=== PATIENT | female | born 2000 | race Two or more races ===

== ENCOUNTER → 2021-03-03 07:44 | Outpatient (CLI) | payer MEDICAID, SELFPAY ==
[2021-03-03 08:12] LABS: Absolute Lymphocyte Count 1.24 X10^3/uL (0.83-4.51); Absolute Neutrophil Count 2.5 X10^3/uL (2.0-7.7); Basophil# 0.03 X10^3/uL; Basophil% 0.6 % (0-1); Eosinophil# 0.41 X10^3/uL; Eosinophils% 8.7 % (0-5); Hematocrit 42.7 % (37-47); Hemoglobin 14.4 g/dL (12.0-15.0); Lymphocyte # 1.24 X10^3/ul (0.83-4.51); Lymphocyte % 26.4 % (19-41); Mean Corp Hgb Conc 33.7 g/dL (32-36); Mean Corpuscular Hgb 29.7 pg (27.0-32.0); Mean Platelet Vol. 8.8 fl (6.2-12.0); Monocyte# 0.47 X10^3/uL; NRBC Flagged by Analyzer 0 % (0-5); Neutrophil # 2.53 X10^3/uL (2.7-7.7); Neutrophil % 54.1 % (47-70); Platelet Count 284 K/mm3 (150-450); RBC Distribution Width CV 11.9 % (11.6-14.6); Red Blood Count 4.85 M/mm3 (4.2-5.4); White Blood Count 4.7 K/mm3 (4.4-11.0)
[2021-03-03 08:25] LABS: Amphetamine Urine VISTA NEGATIVE (<1000 ng/mL); Barbiturate Urine VISTA NEGATIVE (< 200 ng/mL); Benzodiazepine Urine VISTA NEGATIVE (< 200 ng/mL); Cocaine Urine VISTA NEGATIVE (< 300 ng/mL); Ecstacy Urine VISTA NEGATIVE (< 500 ng/mL); Methadone Urine VISTA NEGATIVE (< 300 ng/mL); PCP Urine VISTA NEGATIVE (< 25 ng/mL); THC Urine VISTA NEGATIVE (< 50 ng/mL); Vista UDS pH Range 6
[2021-03-03 08:59] LABS: ALB/GLOB Ratio 0.8 RATIO (0.9-2.4); AST(SGOT) 17 U/L (15-37); Alanine Aminotransfer ALT/SGPT 16 U/L (13-56); Albumin, Serum 3.5 g/dL (3.2-5.0); Alkaline Phosphatase 43 U/L (45-117); BUN 11 mg/dL (7-18); BUN/Creat Ratio 14.1 RATIO (10-20); Calcium,Total 8.6 mg/dL (8.5-10.1); Cholesterol 161 mg/dL (200); Creatinine, Serum 0.78 mg/dL (0.55-1.02); EST Glomerular Filtration Rate 100 mL/min (>60); Est Glom Filt Rate - Afr Amer 120 mL/min (>60); Globulin 4.6 g/dL (2.2-4.2); Glucose 80 mg/dL (74-106); Protein, Total 8.1 g/dL (6.4-8.2)
[2021-03-03 09:00] LABS: Anion Gap 4 (5-15); Chloride 106 mmol/L (98-107); Free T3 3.2 pg/mL (2.18-3.98); High Density Lipoprotein 73 mg/dL; Sodium Level 134 mmol/L (136-145); T4 Free Direct 0.87 ng/dL (0.76-1.46); T4 Total, Thyroxin 11.6 ug/dL (4.8-13.9); Thyroid Stim Hormone (TSH) 3.65 uIU/mL (0.358-3.74); Triglycerides 102 mg/dL; Very Low Density Lipoprotein 20 mg/dL (5-40)
[2021-03-03 09:29] LABS: T3 Total - Triiodothyronine 1.71 ng/mL (0.6-1.81)
== END ==
DX: F41.1 Generalized anxiety disorder (principal); F31.62 Bipolar disorder, current episode mixed, moderate
CPT/HCPCS: 36415; 80053; 80061; 80307; 84436; 84439; 84443; 84480; 84481; 85025

== ENCOUNTER → 2021-04-10 08:58 | Outpatient (CLI) | payer MEDICAID, SELFPAY ==
[2021-04-10 09:51] LABS: Amphetamine Urine VISTA NEGATIVE (<1000 ng/mL); Barbiturate Urine VISTA NEGATIVE (< 200 ng/mL); Benzodiazepine Urine VISTA NEGATIVE (< 200 ng/mL); Cocaine Urine VISTA NEGATIVE (< 300 ng/mL); Ecstacy Urine VISTA NEGATIVE (< 500 ng/mL); Methadone Urine VISTA NEGATIVE (< 300 ng/mL); PCP Urine VISTA NEGATIVE (< 25 ng/mL); THC Urine VISTA POSITIVE (< 50 ng/mL); Vista UDS pH Range 5
== END ==
DX: F90.2 Attention-deficit hyperactivity disorder, combined type (principal); F41.1 Generalized anxiety disorder
CPT/HCPCS: 80307

== ENCOUNTER → 2022-01-07 | Outpatient (CLI) | payer MEDICARE, MEDICAID, SELFPAY ==
--- NOTE | 2022-01-07 07:53 | CT_ITS ---
STUDY: CT MAXILLOFACIAL SINUSES REASON FOR EXAM: Female, 21 years old. CHRONIC SINUSITIS RADIATION DOSAGE (If Supplied By Facility): CTDIvol = ( 33.06 ) mGy, DLP = ( 891.70 ) mGycm TECHNIQUE: The patient was scanned in a multi detector CT scanner. High resolution axial imaging was performed without the administration of intravenous contrast material. Sagittal and coronal images were reconstructed. Individualized dose optimization techniques were used for this CT. COMPARISON: None. FINDINGS: FRONTAL SINUSES: Normal aeration, without mucosal inflammatory disease. ETHMOIDAL SINUSES: Mucosal thickening of the ethmoid sinuses. MAXILLARY SINUSES: Mild degree of mucosal thickening of both maxillary sinuses slightly worse on the left side. SPHENOIDAL SINUSES: Normal aeration, without mucosal inflammatory disease. There is patency of the bilateral maxillary infundibuli with normal uncinate processes, ethmoid bullae, and hiatus semilunaris. There is a wili bullosa of the right middle turbinate. There is hypertrophy of the right inferior nasal turbinate. Normal midline nasal septum. There is patency of the bilateral nasal airways. The visualized osseous structures are normal. The visualized bilateral orbital contents are normal. CT/Sinus/Facial Bone IMPRESSION: Mucosal thickening of the maxillary sinuses and ethmoid sinuses. Hypertrophy of the inferior turbinates on the right side. Electronically Signed: Gomez Calvin MD at 8:46 EDT ,
== END | disposition home or self-care (01) ==
LOC: CT 07:51
PROVIDERS: Referring Provider Otolaryngology; Visit Provider Otolaryngology
DX: J32.8 Other chronic sinusitis (principal)
CPT/HCPCS: 70486

== ENCOUNTER → 2022-08-31 | Outpatient (CLI) | payer MEDICARE, SELFPAY | END | disposition home or self-care (01) | PROVIDERS: Referring Provider Otolaryngology; Visit Provider Otolaryngology | DX: J32.8 Other chronic sinusitis (principal) | CPT/HCPCS: 87070; 87077; 87186; 87205 ==

== ENCOUNTER → 2022-10-06 | Outpatient (CLI) | payer MEDICARE, MEDICAID, SELFPAY ==
--- NOTE | 2022-10-06 12:22 | ETH_PTH ---
PATIENT: ANA LUISA SEGURA LOC: [facility] U#:[id number] AGE/SX: 22/F ROOM: RE10/06/[address]: Dr. Drew Morgan MD : 2000 BED: DIS: 10/06/2022 SPEC #: [id number] RECD: 10/06/22 14:57 STATUS: KENNEY VERONICA #: [id number] WOLFGANG: 10/06/22 12:[address]: Drew Morgan DEPT: SURGICAL PATHOLOGY RECD BY: Rhys Granger ENTERED: 10/07/22 08:15 SP TYPE: ETH TISS OTHR DR: No Primary Care Phys [facility] Tissues: A - Ethmoid sinus, NOS B - Ethmoid sinus, NOS Procedures: Decalcification bone/plaque Surgery Specimen Level IV HEADER OPERATION: Functional endoscopic sinus surgery PRE-OP DIAGNOSIS: Chronic sinusitis TISSUE SUBMITTED: A ? Right sinus contents, B ? Left sinus contents MICROSCOPIC DIAGNOSIS A. Right sinus contents: Fragments of respiratory mucosa with chronic inflammation and bone. B. Left sinus contents: Fragments of respiratory mucosa with chronic inflammation and bone. AJ:erwin 10/12/2022 MICROSCOPIC DESCRIPTION Slides are reviewed. GROSS DESCRIPTION A - Received in fixative is one container labeled with the patient's name and designated right sinus contents. The specimen consists of multiple irregular fragments of gritty, estrada-pink tissue that in aggregate measure 2.5 x 2.2 x 0.2 cm. The specimen is totally submitted in one cassette after decalcification. B - Received in fixative is one container labeled with the patient's name and designated left sinus contents. The specimen consists of multiple irregular fragments of gritty, estrada-pink tissue that in aggregate measure 2.7 x 2.5 x 0.2 cm. The specimen is totally submitted in one cassette after decalcification. / AM:erwin 10/07/2022 TC:3 CPT: 69074 x2, 44674 x2
== END | disposition home or self-care (01) ==
PROVIDERS: Referring Provider Otolaryngology; Visit Provider Otolaryngology
DX: J32.9 Chronic sinusitis, unspecified (principal)
CPT/HCPCS: 88305; 88311

== ENCOUNTER → 2023-03-05 | Outpatient (CLI) | payer MEDICARE, MEDICAID, SELFPAY | END | disposition home or self-care (01) | LOC: LABSPEC 15:45 | PROVIDERS: Referring Provider Otolaryngology; Visit Provider Otolaryngology | DX: J32.9 Chronic sinusitis, unspecified (principal) | CPT/HCPCS: 87070; 87077; 87186; 87205 ==

== ENCOUNTER 2023-12-09 03:40 | Emergency (ER) | payer MEDICARE, MEDICAID, SELFPAY ==
[2023-12-09 03:40] VITALS: BP 147/91; PULSE 79; RESP 16; TEMP 36.2; O2SAT 100; BMI 23.8
--- NOTE | 2023-12-09 03:57 | EDS_ITS ---
HPI History of Present Illness Chief Complaint: Sore Throat Informant: patient Narrative Narrative: Patient is a 23-year-old female with past medical history of anxiety and depression as well as hypertension. She states that she was around a friend's child the other day who now has a sore throat. She denies any fevers congestion or cough. She states it is painful to swallow but denies any difficulty. She states that she has had difficulty sleeping secondary to the throat pain that is concern for potential infection and therefore comes in for evaluation Patient also denies any concern for PFSH [facility] Medical History Allergies Anxiety Asthma Drug abuse Emotional problems Generalized headaches Hypertension Neuropathy Pneumonia Psychiatric hospitalization Home Medications fluticasone fur. 200 mcg-umeclid 62.5 mcg-vilant 25 mcg inhalat.powder (Trelegy Ellipta) 1 ea inhalation QDAY 10/21/23 [History Last Taken Unknown] levonorgestrel 0.15 mg-ethinyl estradiol 30 mcg tablets,3 mos pack(91) (Setlakin) 1 tab PO DAILY 10/21/23 [History Last Taken Unknown] spironolactone 100 mg tablet 150 mg PO QDAY 10/21/23 [History Last Taken Unknown] duloxetine 30 mg capsule,delayed release 30 mg PO DAILY #30 caps 12/02/23 [Rx Last Taken Unknown] hydroxyzine HCl 25 mg tablet 12.5 mg (1/2 x 25 mg) PO BID PRN anxiety #90 tabs 12/02/23 [Rx Last Taken Unknown] amoxicillin 875 mg-potassium clavulanate 125 mg tablet 1 tab PO BID 7 days #14 tabs 12/09/23 [Rx Last Taken Unknown] oxycodone-acetaminophen 5 mg-325 mg tablet (Percocet) 1 tab PO Q6H PRN pain 3 days #12 tabs 12/09/23 [Rx Last Taken Unknown] prednisone 20 mg tablet 40 mg (2 x 20 mg) PO DAILY 5 days #10 tabs 12/09/23 [Rx Last Taken Unknown] Allergy/AdvReac Type Severity Reaction Status Date / Time No Known Allergies Allergy Verified 12/09/23 03:42 Family History Other Alcoholism Anxiety Arthritis Asthma Autoimmune disorder defect Blood clot in vein CVA (cerebral vascular accident) Cancer Depression Diabetes Heart disease Hypertension Kidney disease Mental disorder Myocardial infarction Parkinson disease Psychiatric care Seizures Suicide attempt Surgical History H/O endoscopic sinus surgery Social History Smoking Status: Never smoker alcohol intake: current details: few drinks once a week substance use type: marijuana what type of physical activity do you participate in: walking ROS ROS ED Constitutional Constitutional ED: Denies chills or fever(s) ENT ENT ED: Reports sore throat; Denies rhinorrhea Cardiovascular Cardiovascular: Denies chest pain Respiratory/Chest Respiratory/Chest: Denies cough or dyspnea Gastrointestinal Gastrointestinal: Denies abdominal pain, diarrhea, nausea or vomiting Genitourinary Genitourinary ED: Denies dysuria Musculoskeletal Musculoskeletal: Denies myalgias or neck pain Integumentary Denies rash Neurologic Neurologic: Denies headache(s) Hematologic/Lymphatic Hematologic/Lymphatic: Denies easy bleeding or easy bruising EXAM Physical Exam Const Vital Signs: 12/09/23 03:40 12/09/23 04:08 Temperature 97.1 F L 97.1 F L Temperature Source Temporal Pulse Rate 79 74 Respiratory Rate 16 16 Blood Pressure 147/91 H 140/79 H Blood Pressure Mean 109 99 Pulse Ox 100 100 Oxygen Delivery Method Room Air Positive well nourished and well developed General Appearance ED: well developed; Negative for pallor HEENT HEENT Narrative: There is bilateral +2 tonsil hypertrophy with diffuse erythema and hard palate petechiae. No exudates noted. No trismus or change in voice or difficulty with secretions. No obvious abscess formation Eyes PERRL and EOMs intact bilaterally General Eye ED: Negative for scleral icterus Neck supple Neck Narrative: Tender anterior cervical lymphadenopathy is noted No nuchal rigidity or meningeal signs Resp normal respiratory effort and clear to auscultation bilaterally Cardio regular rate and regular rhythm Extremity normal to inspection Neuro oriented x3, CN's II-XII intact bilaterally and no sensory deficits noted Sensorium / Orientation: alert Motor Exam: strength 5/5 throughout Psych mental status grossly normal Skin no rashes or lesions noted, no wounds and skin turgor normal General Skin Exam: Negative for jaundice or pallor MDM MDM MDM Narrative Medical decision making narrative: Patient presented to the ER hypertensive otherwise with stable vitals. Physical exam showed bilateral tonsil hypertrophy with erythema and hard palate petechiae. Differential diagnosis is for bacterial versus viral pharyngitis versus epiglottitis versus peritonsillar abscess versus mononucleosis. The patient does not have a posterior lymph node going against Aster-Persaud virus. There is no unilateral swelling of the tonsil no trismus or change in voice going against abscess. There is no difficulty with secretions going against epiglottitis. Based on her lack of congestion and cough and the fact she has diffuse inflammation to the throat with anterior lymph nodes this is most likely bacterial pharyngitis. Therefore patient was her on antibiotics and steroids to help control inflammation and infection but as she does not have signs of systemic infection or need for potential surgical intervention she is otherwise safe for discharge., History & Record Review Discussion w/independent historian: Patient Discharge Plan Triage Chief Complaint: Sore Throat ED Provider: Jorge Bell Dx/Rx/DC Orders Clinical Impression: Acute pharyngitis, Anxiety, Depression Instructions: Self-Care for Sore Throats, ED Pharyngitis, Strep (Confirmed) Prescriptions: New prednisone 20 mg tablet 40 mg PO DAILY 5 Days Qty: 10 0RF oxycodone-acetaminophen [Percocet] 5-325 mg tablet 1 tab PO Q6H PRN (Reason: pain) 3 Days Qty: 12 0RF amoxicillin-pot clavulanate 875-125 mg tablet 1 tab PO BID 7 Days Qty: 14 0RF No Action spironolactone 100 mg tablet 150 mg PO QDAY levonorgestrel-ethinyl estrad [Setlakin] 0.15 mg-30 mcg (91) tablets,dose pack,3 month 1 tab PO DAILY Trelegy Ellipta 200-62.5-25 mcg blister with device 1 ea inhalation QDAY duloxetine 30 mg capsule,delayed release(DR/EC) 30 mg PO DAILY Qty: 30 1RF hydroxyzine HCl 25 mg tablet 12.5 mg PO BID PRN (Reason: anxiety) Qty: 90 1RF Stand Alone Forms: ED Work / School Excuse Primary Care Provider: Carmel Hawk NP Referrals: Carmel Hawk NP, [facility] [Primary Care Provider] - Activity Restrictions/Additional Instructions: Please return to the ER should you have any further concerns or worsening of symptoms despite taking your medication Disposition Disposition: Home, Self Care Discharge Date/Time: 12/09/23 04:09
[2023-12-09] MEDS: Oxycodone/Apap 5/325 Tablet PO (04:05)
[2023-12-09] MEDS: dexAMETHasone 10 MG/ML Vial PO.IVFORM (04:05)
[2023-12-09] MEDS: Amox/Clavulanate 875 MG Tablet PO (04:05)
[2023-12-09 04:08] VITALS: BP 140/79; PULSE 74; RESP 16; TEMP 36.2; O2SAT 100
== END 2023-12-09 04:09 | disposition home or self-care (01) ==
LOC: ED 04:09
PROVIDERS: Emergency Provider Emergency Medicine; PCP Internal Medicine; Visit Provider Emergency Medicine
DX: J02.9 Acute pharyngitis, unspecified (principal); F41.9 Anxiety disorder, unspecified; I10 Essential (primary) hypertension; F32.A Depression, unspecified; J45.909 Unspecified asthma, uncomplicated; Z79.51 Long term (current) use of inhaled steroids; Z79.899 Other long term (current) drug therapy; Z79.3 Long term (current) use of hormonal contraceptives
CPT/HCPCS: 99283